=== PATIENT | male | born 1970 | race Caucasian/White ===

== ENCOUNTER 2017-01-19 02:27 | Emergency (ER) | payer SELFPAY ==
[2017-01-19 02:48] VITALS: RESP 20
[2017-01-19] MEDS ORDERED: Bacitracin 500 Units/gm Oint Foilpak UD TOP ONE (03:35)
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
[2017-01-19] MEDS ORDERED: Bacitracin 500 Units/gm Oint Foilpak UD ONE (03:40)
[2017-01-19 05:59] VITALS: BP 110/74; PULSE 56; TEMP 97.9
[2017-01-19 06:45] VITALS: O2SAT 97
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
== END 2017-01-19 06:06 | disposition home or self-care (01) ==
LOC: C.ER 02:27
DX: S62.305A Unspecified fracture of fourth metacarpal bone, left hand, initial encounter for closed fracture (principal); W11.XXXA Fall on and from ladder, initial encounter; Y92.009 Unspecified place in unspecified non-institutional (private) residence as the place of occurrence of the external cause; Z23 Encounter for immunization

== ENCOUNTER 2018-06-19 06:54 | Emergency (ER) | payer SELFPAY ==
[2018-06-19 07:04] VITALS: BP 132/81; PULSE 92; RESP 18; TEMP 98.2; O2SAT 95
--- NOTE | 2018-06-19 10:57 | C.PDOC ---
History Of Present Illness 47 y/o male presents to the ER complaining of cough and nasal congestion which has been present since yesterday. Patient denies having CP, SOB, fever, and chills. Time Seen by Provider: 06/19/18 07:26 Chief Complaint (Nursing): Cough, Cold, Congestion History Per: Patient History/Exam Limitations: no limitations Onset/Duration Of Symptoms: Days Current Symptoms Are (Timing): Still Present Severity: Moderate Past Medical History Reviewed: Historical Data, Nursing Documentation, Vital Signs Vital Signs: Last Vital Signs Temp 98.2 F 06/19/18 07:00 Pulse 92 H 06/19/18 07:00 Resp 18 06/19/18 07:00 BP 132/81 06/19/18 07:00 Pulse Ox 95 06/19/18 10:59 - Medical History PMH: Asthma Surgical History: No Surg Hx Family History: States: No Known Family Hx - Social History Hx Tobacco Use: No Hx Alcohol Use: Yes Hx Substance Use: No - Immunization History Hx Influenza Vaccination: No Hx Pneumococcal Vaccination: No Review Of Systems Except As Marked, All Systems Reviewed And Found Negative. Constitutional: Negative for: Fever, Chills ENT: Positive for: Nose Congestion Cardiovascular: Negative for: Chest Pain Respiratory: Positive for: Cough. Negative for: Shortness of Breath Physical Exam - Physical Exam Appears: Non-toxic, No Acute Distress Skin: Normal Color, Warm, Dry Head: Atraumatic, Normacephalic Eye(s): bilateral: Normal Inspection Nose: Normal Oral Mucosa: Moist Neck: Supple Chest: Symmetrical Cardiovascular: Rhythm Regular Respiratory: Normal Breath Sounds, No Rales, No Rhonchi, No Wheezing Extremity: Normal ROM Neurological/Psych: Oriented x3, Normal Speech ED Course And Treatment O2 Sat by Pulse Oximetry: 95 (RA) Pulse Ox Interpretation: Normal Progress Note: Patient treated with motrin. On re-evaluation lungs clear, in no distress Reassessment Condition: Improved Medical Decision Making Medical Decision Making: Plan: --Motrin PO Disposition - Disposition Referrals: [facility] [Outside] [facility] [email or web address]. [facility] [Outside] Non [facility] Provider, [Primary Care Provider] - Disposition: HOME/ ROUTINE Disposition Time: 08:30 Condition: STABLE Additional Instructions: Motrin or tylenol as needed Follow up at clinic Instructions: Upper Respiratory Infection (ED) Forms: J[employer]I MIND (Korean) Print Language: UZBEK - POA Present On Arrival: None - Clinical Impression Clinical Impression: Upper respiratory infection - PA / SHIRT PRESSER / Resident Statement MD/DO has reviewed & agrees with the documentation as recorded. - Scribe Statement The provider has reviewed the documentation as recorded by the Scribe Artur Orellana Provider Attestation All medical record entries made by the Scribe were at my direction and personally dictated by me. I have reviewed the chart and agree that the record accurately reflects my personal performance of the history, physical exam, medical decision making, and the department course for this patient. I have also personally directed, reviewed, and agree with the discharge instructions and disposition.
== END 2018-06-19 08:59 | disposition home or self-care (01) ==
LOC: C.ER 06:54 → SUPCPDRO 06:54 → C.ER 08:59
DX: J06.9 Acute upper respiratory infection, unspecified (principal)